=== PATIENT | female | born 1970 | race African-American/Black ===

== ENCOUNTER 2018-01-12 17:45 | Emergency (ER) | payer OTHER ==
[~2018-01-12] VITALS: Ht 170.2 cm; Wt 97.5 kg
[2018-01-12] MEDS ORDERED: Methocarbamol 500mg tab ORAL ONE (18:00)
[2018-01-12] MEDS ORDERED: Acetaminophen 500mg (ES) tab ORAL ONE (18:00)
[2018-01-12] MEDS ORDERED: ROBAXIN500 MG PO (18:33)
[2018-01-12] MEDS ORDERED: TYLENOL EXTRA500 MG ORAL (18:33)
[2018-01-12] MEDS ORDERED: LIDOCAINE700 M1 TP (18:33)
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
[2018-01-12 18:37] VITALS: BP 118/79
[2018-01-12 18:48] VITALS: BP 118/79
== END 2018-01-12 18:48 | disposition home or self-care (01) ==
LOC: EMR 18:13
DX: M54.2 Cervicalgia (principal); M54.9 Dorsalgia, unspecified; M25.552 Pain in left hip; V43.52XA Car driver injured in collision with other type car in traffic accident, initial encounter; Y92.410 Unspecified street and highway as the place of occurrence of the external cause; J45.909 Unspecified asthma, uncomplicated
CPT/HCPCS: 99284